=== PATIENT | male | born 1975 | race Two or more races ===

== ENCOUNTER 2018-06-15 01:13 | Emergency (ER) | payer MEDICAID ==
[~2018-06-15] VITALS: Ht 185.4 cm; Wt 131.5 kg
[2018-06-15] MEDS ORDERED: Sodium Chloride 500ML 500 ML IV ONE (01:47)
[2018-06-15] MEDS ORDERED: Morphine Sulfate 4mg/ml Inj (IV USE ONLY) IVP ONE ×2 (02:00→03:30)
[2018-06-15 02:25] LABS: BASOPHILS % (AUTO) 1.2 % (0.0-2.0); EOSINOPHILS % (AUTO) 3.9 % (0.0-3.0); HEMATOCRIT 42.7 % (42.0-52.0); HEMOGLOBIN 14.6 G/DL (14.2-18.0); LYMPHOCYTES % (AUTO) 20.1 % (20.0-45.0); MEAN CORPUSCULAR VOLUME 85 FL (80-99); MONOCYTES % (AUTO) 7.1 % (1.0-10.0); NEUTROPHILS % (AUTO) 67.7 % (45.0-75.0); PLATELET COUNT 221 K/UL (150-450); RED BLOOD COUNT 5.01 M/UL (4.70-6.10); RED CELL DISTRIBUTION WIDTH 11.6 % (11.6-14.8); WHITE BLOOD COUNT 9.9 K/UL (4.8-10.8)
[2018-06-15 02:31] LABS: ANION GAP 11 mmol/L (5-15); BLOOD UREA NITROGEN 15 mg/dL (7-18); CALCIUM 8.7 MG/DL (8.5-10.1); CARBON DIOXIDE 24 MMOL/L (21-32); CHLORIDE 105 MMOL/L (98-107); POTASSIUM 3.4 MMOL/L (3.5-5.1); SODIUM 140 MMOL/L (136-145)
[2018-06-15 02:36] VITALS: BP 134/86
[2018-06-15 02:41] LABS: ALANINE AMINOTRANSFERASE 115 U/L (12-78); ALBUMIN 3.1 G/DL (3.4-5.0); ALBUMIN/GLOBULIN RATIO 0.7 (1.0-2.7); ALKALINE PHOSPHATASE 268 U/L (46-116); ASPARTATE AMINO TRANSFERASE 56 U/L (15-37)
--- NOTE | 2018-06-15 03:51 | Emergency Room Report ---
History of Present Illness General Chief Complaint: Abdominal Pain Source: Patient Present Illness HPI Patient presents with complaints of right upper quadrant abdominal pain He reports that he had a pastrami sandwich and feels that he flared up his gallbladder disease Patient reports that he has a history of gallbladder disease and was supposed to be having surgery Pain is 7 out of 10 right upper quadrant Patient reports that he is followed at [facility] at [facility] Denies any neck pain or photophobia denies any vomiting however he is nauseated Denies any diarrhea Allergies: Uncoded Allergies: PENICILLIN (Allergy, Unknown, 06/15/18) SWELLING Patient History Past Medical History: see triage record Pertinent Family History: none Reviewed Nursing Documentation: PMH: Agreed; PSxH: Agreed Nursing Documentation-PMH Past Medical History: No History, Except For Review of Systems All Other Systems: negative except mentioned in HPI Physical Exam Vital Signs Date Time Temp Pulse Resp B/P (MAP) Pulse Ox O2 Delivery O2 Flow Rate FiO2 06/15/18 01:17 97.6 71 20 142/90 96 Room Air 97.5 Sp02 EP Interpretation: reviewed, normal General Appearance: mild distress - In acute pain Head: normocephalic, atraumatic Eyes: bilateral eye PERRL, bilateral eye EOMI ENT: hearing grossly normal, normal pharynx Neck: supple Respiratory: lungs clear Cardiovascular #1: regular rate, rhythm, no edema Gastrointestinal: non tender - On palpation however subjectively points to the epigastric and right upper quadrant Musculoskeletal: normal inspection Neurologic: alert, oriented x3 Skin: no rash Lymphatic: no adenopathy Medical Decision Making Diagnostic Impression: Primary Impression: abdominal pain ER Course With the history exam and presentation, multiple differentials considered, including but not limited to appendicitis, gastritis, cholecystitis, diverticulitis Patient's blood work reveals mildly elevated liver function test Consistent with the patient's past medical history On repeat evaluation patient feels significantly improved Patient requires close outpatient follow-up and return with any worsening symptoms Labs Test 06/15/18 02:00 White Blood Count 9.9 K/UL (4.8-10.8) Red Blood Count 5.01 M/UL (4.70-6.10) Hemoglobin 14.6 G/DL (14.2-18.0) Hematocrit 42.7 % (42.0-52.0) Mean Corpuscular Volume 85 FL (80-99) Mean Corpuscular Hemoglobin 29.1 PG (27.0-31.0) Mean Corpuscular Hemoglobin Concent 34.1 G/DL (32.0-36.0) Red Cell Distribution Width 11.6 % (11.6-14.8) Platelet Count 221 K/UL (150-450) Mean Platelet Volume 9.7 FL (6.5-10.1) Neutrophils (%) (Auto) 67.7 % (45.0-75.0) Lymphocytes (%) (Auto) 20.1 % (20.0-45.0) Monocytes (%) (Auto) 7.1 % (1.0-10.0) Eosinophils (%) (Auto) 3.9 % (0.0-3.0) Basophils (%) (Auto) 1.2 % (0.0-2.0) Sodium Level 140 MMOL/L (136-145) Potassium Level 3.4 MMOL/L (3.5-5.1) Chloride Level 105 MMOL/L (98-107) Carbon Dioxide Level 24 MMOL/L (21-32) Anion Gap 11 mmol/L (5-15) Blood Urea Nitrogen 15 mg/dL (7-18) Creatinine 1.0 MG/DL (0.55-1.30) Estimat Glomerular Filtration Rate > 60 mL/min (>60) Glucose Level 133 MG/DL (74-106) Calcium Level 8.7 MG/DL (8.5-10.1) Total Bilirubin 1.0 MG/DL (0.2-1.0) Aspartate Amino Transf (AST/SGOT) 56 U/L (15-37) Alanine Aminotransferase (ALT/SGPT) 115 U/L (12-78) Alkaline Phosphatase 268 U/L (46-116) Total Protein 7.3 G/DL (6.4-8.2) Albumin 3.1 G/DL (3.4-5.0) Globulin 4.2 g/dL Albumin/Globulin Ratio 0.7 (1.0-2.7) Lipase 127 U/L (73-393) Last Vital Signs Date Time Temp Pulse Resp B/P (MAP) Pulse Ox O2 Delivery O2 Flow Rate FiO2 06/15/18 03:28 97.5 06/15/18 02:36 65 20 134/86 98 Room Air Status: improved Disposition: HOME, SELF-CARE Condition: Improved Referrals: NOT CHOSEN IPA/MD,REFERRING (PCP) Patient Instructions: Abdominal Pain, Adult Additional Instructions: Patient is provided with the discharge instructions notified to follow up with primary doctor in the next 2-3 days otherwise return to the er with any worsening symptoms. Please note that this report is being documented using DRAGON technology. This can lead to erroneous entry secondary to incorrect interpretation by the dictating instrument. Glen Eldridge DO Jun 15, 2018 03:51
[2018-06-15 03:55] VITALS: BP 131/82
== END 2018-06-15 03:55 | disposition home or self-care (01) ==
LOC: EMR 01:34
DX: R10.31 Right lower quadrant pain (principal); Z88.0 Allergy status to penicillin
CPT/HCPCS: 36415; 80053; 83690; 85025; 96374; 96375; 96376; 99284; J2270; J2405; J7040

== ENCOUNTER 2018-06-15 17:52 | Inpatient (IN) | payer MEDICAID ==
[~2018-06-15] VITALS: Ht 185.4 cm; Wt 132.4 kg
[2018-06-15 18:10] VITALS: BP 152/84
[2018-06-15] MEDS ORDERED: Dicyclomine HCl 10mg/5ml oral soln ORAL ONE (18:15)
--- NOTE | 2018-06-15 18:23 | Emergency Room Report ---
History of Present Illness General Chief Complaint: Abdominal Pain Source: Patient Present Illness HPI 42-year-old male with a self-reported history of primary sclerosing cholangitis presents with right upper quadrant pain that started last night, reports he is here last night did not have adequate pain control and was sent home without pain meds, and he reports he is not a drug user. He reports the pain is right upper quadrant, nonradiating, sharp, severe, and thinks it was triggered by eating an eggroll. He reports nausea but no vomiting, no fevers no chills no diarrhea, and reports he's never had a major surgeries. He has not tried any medications at home either for the symptoms. Allergies: Coded Allergies: PENICILLINS (Verified Allergy, Unknown, 06/15/18) Patient History Past Medical History: see triage record Reviewed Nursing Documentation: PMH: Agreed; PSxH: Agreed Nursing Documentation-PMH Past Medical History: No History, Except For Review of Systems All Other Systems: negative except mentioned in HPI Physical Exam Vital Signs Date Time Temp Pulse Resp B/P (MAP) Pulse Ox O2 Delivery O2 Flow Rate FiO2 06/15/18 17:59 97.5 57 16 152/84 100 Room Air 97.5 Sp02 EP Interpretation: reviewed, normal General Appearance: no apparent distress, alert, non-toxic Head: normocephalic Eyes: bilateral eye normal inspection, bilateral eye PERRL, bilateral eye EOMI ENT: normal ENT inspection, hearing grossly normal, normal pharynx, no angioedema, normal voice, moist mucus membranes Neck: normal inspection, full range of motion, supple, supple/symm/no masses Respiratory: chest non-tender, lungs clear, normal breath sounds, chest symmetrical, palpation of chest normal Cardiovascular #1: normal peripheral pulses, regular rate, rhythm Cardiovascular #2: 2+ radial (R), 2+ radial (L) Gastrointestinal: normal inspection, soft, no mass, no guarding, no rebound, tenderness - Positive subjective tenderness quadrant Rectal: deferred Genitourinary: normal inspection, no CVA tenderness Musculoskeletal: back normal, gait/station normal, normal range of motion, non- tender, no calf tenderness Neurologic: alert, responsive, deburr operator III-XII nml as tested, motor strength/tone normal, sensory intact, speech normal Psychiatric: judgement/insight normal, memory normal, mood/affect normal, no suicidal/homicidal ideation Skin: normal color, no rash, warm/dry, normal turgor Lymphatic: no adenopathy Medical Decision Making Diagnostic Impression: Primary Impression: Abdominal pain Additional Impression: Acute calculous cholecystitis ER Course Patient given bentyl and zofran for pain and nausea here. Received no relief , so then given Haldol, morphine, Ativan, pending results of ultrasound, but then I was informed that ultrasound would not be available until after 10 PM, so CT scan was obtained. This revealed evidence of acute cholecystitis with large gallstone in the gallbladder neck. Pt given zosyn, Dr. Burgos consulted. Pt admitted to [facility]. CT/MRI/US Diagnostic Results CT/MRI/US Diagnostic Results : Imaging Test Ordered: ct abd/pelvis Impression large gallstone in gb neck, color wall thickness increased pericholecystic fluid seen on CT scan per readingfindings consistent with acute calculus cholecystitis Last Vital Signs Date Time Temp Pulse Resp B/P (MAP) Pulse Ox O2 Delivery O2 Flow Rate FiO2 06/15/18 17:59 97.5 57 16 152/84 100 Room Air 97.5 Disposition: ADMITTED INPATIENT Condition: Stable JAS HEBERT M.D Jun 15, 2018 18:23
[2018-06-15 18:42] LABS: BASOPHILS % (AUTO) 1.1 % (0.0-2.0); EOSINOPHILS % (AUTO) 2.4 % (0.0-3.0); HEMOGLOBIN 15.3 G/DL (14.2-18.0); LYMPHOCYTES % (AUTO) 10.4 % (20.0-45.0); MEAN CORPUSCULAR VOLUME 89 FL (80-99); MONOCYTES % (AUTO) 5.2 % (1.0-10.0); PLATELET COUNT 238 K/UL (150-450); RED BLOOD COUNT 5.18 M/UL (4.70-6.10); WHITE BLOOD COUNT 13.8 K/UL (4.8-10.8)
[2018-06-15 18:46] LABS: APPEARANCE,URINE CLEAR; BILIRUBIN, URINE 1+ (NEGATIVE); GLUCOSE, URINE (UA) NEGATIVE (NEGATIVE); KETONES,URINE NEGATIVE (NEGATIVE); LEUKOCYTE ESTERASE ,URINE 1+ (NEGATIVE); NITRITE,URINE NEGATIVE (NEGATIVE); PH,URINE 7 (4.5-8.0); PROTEIN,URINE NEGATIVE (NEGATIVE); UROBILINOGEN,URINE 12 MG/DL (0.0-1.0)
[2018-06-15 18:51] LABS: ANION GAP 7 mmol/L (5-15); BLOOD UREA NITROGEN 14 mg/dL (7-18); CARBON DIOXIDE 29 MMOL/L (21-32); CHLORIDE 103 MMOL/L (98-107); POTASSIUM 3.5 MMOL/L (3.5-5.1); SODIUM 139 MMOL/L (136-145)
[2018-06-15 18:51] LABS: COLOR,URINE AMBER
[2018-06-15 19:01] LABS: ALANINE AMINOTRANSFERASE 115 U/L (12-78); ALBUMIN 3.4 G/DL (3.4-5.0); ALBUMIN/GLOBULIN RATIO 0.7 (1.0-2.7); ALKALINE PHOSPHATASE 288 U/L (46-116); ASPARTATE AMINO TRANSFERASE 48 U/L (15-37); BILIRUBIN,TOTAL 1.7 MG/DL (0.2-1.0)
[2018-06-15 19:07] LABS: BILIRUBIN,DIRECT 0.7 MG/DL (0.0-0.3)
[2018-06-15 19:41] VITALS: BP 148/80
[2018-06-15] MEDS ORDERED: Morphine Sulfate 4mg/ml Inj (IV USE ONLY) IVP ONE ×2 (20:00→22:00)
[2018-06-15] MEDS ORDERED: LORazepam 1mg tab ORAL ONE (20:00)
[2018-06-15] MEDS ORDERED: Haloperidol 5mg/ml Inj IM ONE (20:00)
[2018-06-15] MEDS ORDERED: Isovue-300 100ml vial INJ PRN (20:15)
[2018-06-15] MEDS ORDERED: Piperacillin/Tazobactam 3.375 GM in NS 110 ML IVPB ONE (21:30)
[2018-06-15] MEDS ORDERED: LORazepam Inj 2mg/ml 1ml IV PRN (22:15)
[2018-06-15] MEDS ORDERED: Acetaminophen 650 MG SUPP RECTAL PRN ×2 (22:15)
[2018-06-15] MEDS ORDERED: Morphine Sulfate 2mg/ml Inj IVP PRN (22:15)
[2018-06-15 23:30] VITALS: BP 147/88
[2018-06-15] MEDS: Morphine Sulfate 4mg/ml Inj (IV USE ONLY) IVP PRN (23:38)
[2018-06-16] MEDS ORDERED: cefOXitin Sod 1 GM in D5W 55 ML IVPB SCH ×2
[2018-06-16] MEDS: Morphine Sulfate 4mg/ml Inj (IV USE ONLY) IVP PRN ×3 (03:47→10:23)
[2018-06-16 04:00] VITALS: BP 132/60
[2018-06-16 07:25] LABS: ALANINE AMINOTRANSFERASE 100 U/L (12-78); ALBUMIN/GLOBULIN RATIO 0.7 (1.0-2.7); ALKALINE PHOSPHATASE 258 U/L (46-116); ANION GAP 6 mmol/L (5-15); ASPARTATE AMINO TRANSFERASE 43 U/L (15-37); BILIRUBIN,TOTAL 2.7 MG/DL (0.2-1.0); BLOOD UREA NITROGEN 10 mg/dL (7-18); CALCIUM 8.9 MG/DL (8.5-10.1); CARBON DIOXIDE 29 MMOL/L (21-32); CHLORIDE 103 MMOL/L (98-107); SODIUM 138 MMOL/L (136-145)
[2018-06-16 07:30] LABS: BASOPHILS % (AUTO) 0.5 % (0.0-2.0); BILIRUBIN,DIRECT 1.3 MG/DL (0.0-0.3); EOSINOPHILS % (AUTO) 1.1 % (0.0-3.0); HEMATOCRIT 45.2 % (42.0-52.0); HEMOGLOBIN 15.1 G/DL (14.2-18.0); LYMPHOCYTES % (AUTO) 7.2 % (20.0-45.0); MEAN CORPUSCULAR VOLUME 85 FL (80-99); NEUTROPHILS % (AUTO) 84.2 % (45.0-75.0); PLATELET COUNT 214 K/UL (150-450); RED CELL DISTRIBUTION WIDTH 11.7 % (11.6-14.8); WHITE BLOOD COUNT 16.6 K/UL (4.8-10.8)
[2018-06-16 08:00] VITALS: BP 143/85
[2018-06-16] MEDS ORDERED: Heparin 5000 units/ml inj SUBQ SCH (09:00)
[2018-06-16] MEDS ORDERED: D5 1/2NS w/KCl 40meq 1000ml 1,000 ML IV SCH (09:00)
--- NOTE | 2018-06-16 09:33 | Diagnostic Imaging Report ---
Indication: Abdominal pain Technique: Continuous helical transaxial imaging of the abdomen and pelvis was obtained from the lung bases to the pubic symphysis. No intravenous contrast was administered. Coronal 2-D reformats were also obtained. Automatic Exposure Control was utilized. Total Dose length Product (DLP): 1580.[address] Dose Index Volume (CTDIvol): 26.2 mGy Comparison: none Findings: There is a stone at the neck of the gallbladder. There is thickening of the gallbladder wall. Correlate clinically for cholecystitis. The spleen is enlarged. There are epigastric and celiac axis nodes and anyi hepatis nodes that are present. These may be reactive. However nonspecific. Follow-up suggested. The appendix is normal. No free fluid or free air identified. No hydronephrosis or renal stones identified. IMPRESSION: Suspected cholecystitis with the stone at the gallbladder neck and wall thickening. Correlate clinically. Splenomegaly. Multiple upper abdominal nodes nonspecific. Inflammatory versus neoplastic. Follow-up and clinical correlation is needed. [facility] has communicated the preliminary results to the Emergency Department. Their findings are largely concordant with this report. The CT scanner at [facility] is accredited by the [employer] and the scans are performed using dose optimization techniques as appropriate to a performed exam including Automatic Exposure control.
[2018-06-16 12:00] VITALS: BP 140/83
--- NOTE | 2018-06-16 12:07 | Diagnostic Imaging Report ---
Indication:Abdominal pain Technique: Grayscale and duplex Doppler imaging of the abdomen performed. Comparison: None Findings: The liver is unremarkable. The gallbladder is notable for stone and wall thickening. The sonographic Pond's sign is negative per technologist. Please correlate clinically. The demonstrated part of the pancreas, aorta and IVC show no abnormalities. Both kidneys appear unremarkable. The spleen is enlarged measuring 18 cm. There is no biliary ductal dilatation identified. Doppler evaluation of the main portal vein shows patency. There is no ascites. No hydronephrosis seen. Impression: Gallstones with gallbladder wall thickening. Sonographic Pond's is negative. Please correlate clinically. Splenomegaly
[2018-06-16] MEDS ORDERED: Morphine Sulfate 2mg/ml Inj IVP ONE (12:15)
[2018-06-16] MEDS ORDERED: NS 275ml ONE (12:59)
[2018-06-16] MEDS ORDERED: Tubing IV Secondary IV ONE (12:59)
--- NOTE | 2018-06-16 14:11 | GI Initial Consult Note ---
History of Present Illness General Date patient seen: Jun 16, 2018 Time patient seen: 13:48 Reason for Hospitalization: Abdominal Pain Referring physician: SUKI COLEMAN Reason for Consultation: ABDOMINAL PAIN Present Illness HPI 42-year-old male with a self-reported history of primary sclerosing cholangitis presents with right upper quadrant pain that started last night, reports he is here last night did not have adequate pain control and was sent home without pain meds, and he reports he is not a drug user. He reports the pain is right upper quadrant, nonradiating, sharp, severe, and thinks it was triggered by eating an eggroll. He reports nausea but no vomiting, no fevers no chills no diarrhea, and reports he's never had a major surgeries. He has not tried any medications at home either for the symptoms. GI consulted for abdominal pain. Pt seen, awake A&Ox4 c/o severe abdominal pain , requesting just to rest. Family/friend at bedside. Patient repots having a history of PBC, currently being seen at [facility] where all his endoscopy procedures have been performed. Presents today with severe abdominal pain. CTAP shows large stone on the gallbladder neck. Labs show uptrending bilirubin. Surgical consult pending. At this time, the family member is requesting a transfer to [facility]. Allergies: Coded Allergies: PENICILLINS (Verified Allergy, Unknown, 06/15/18) Patient History History Provided By: Patient, Family Member, Medical Record PMH Narrative Past Medical History: see triage record Reviewed Nursing Documentation: PMH: Agreed; PSxH: Agreed Nursing Documentation-PMH Past Medical History: No History, Except For Social History: Denies: smoking, alcohol use, drug use, other Review of Systems All Other Systems: negative except mentioned in HPI Physical Exam Vital Signs Date Time Temp Pulse Resp B/P (MAP) Pulse Ox O2 Delivery O2 Flow Rate FiO2 06/15/18 17:59 97.5 57 16 152/84 100 Room Air 97.5 Sp02 EP Interpretation: reviewed, normal Labs Laboratory Tests Test 06/15/18 18:20 06/15/18 18:24 06/16/18 06:30 Urine Color Ramona Urine Appearance Clear Urine pH 7 (4.5-8.0) Urine Specific [place] 1.010 (1.005-1.035) Urine Protein Negative (NEGATIVE) Urine Glucose (UA) Negative (NEGATIVE) Urine Ketones Negative (NEGATIVE) Urine Blood 1+ (NEGATIVE) H Urine Nitrite Negative (NEGATIVE) Urine Bilirubin 1+ (NEGATIVE) H Urine Ictotest Negative (NEGATIVE) Urine Urobilinogen 12 MG/DL (0.0-1.0) H Urine Leukocyte Esterase 1+ (NEGATIVE) H Urine RBC 2-4 /HPF (0 - 0) H Urine WBC 0-2 /HPF (0 - 0) Urine Squamous Epithelial Cells None /LPF (NONE/OCC) Urine Bacteria Occasional /HPF (NONE) White Blood Count 13.8 K/UL (4.8-10.8) H 16.6 K/UL (4.8-10.8) H Red Blood Count 5.18 M/UL (4.70-6.10) 5.30 M/UL (4.70-6.10) Hemoglobin 15.3 G/DL (14.2-18.0) 15.1 G/DL (14.2-18.0) Hematocrit 46.0 % (42.0-52.0) 45.2 % (42.0-52.0) Mean Corpuscular Volume 89 FL (80-99) 85 FL (80-99) Mean Corpuscular Hemoglobin 29.5 PG (27.0-31.0) 28.5 PG (27.0-31.0) Mean Corpuscular Hemoglobin Concent 33.2 G/DL (32.0-36.0) 33.4 G/DL (32.0-36.0) Red Cell Distribution Width 12.0 % (11.6-14.8) 11.7 % (11.6-14.8) Platelet Count 238 K/UL (150-450) 214 K/UL (150-450) Mean Platelet Volume 9.8 FL (6.5-10.1) 10.0 FL (6.5-10.1) Neutrophils (%) (Auto) 81.0 % (45.0-75.0) H 84.2 % (45.0-75.0) H Lymphocytes (%) (Auto) 10.4 % (20.0-45.0) L 7.2 % (20.0-45.0) L Monocytes (%) (Auto) 5.2 % (1.0-10.0) 7.0 % (1.0-10.0) Eosinophils (%) (Auto) 2.4 % (0.0-3.0) 1.1 % (0.0-3.0) Basophils (%) (Auto) 1.1 % (0.0-2.0) 0.5 % (0.0-2.0) Sodium Level 139 MMOL/L (136-145) 138 MMOL/L (136-145) Potassium Level 3.5 MMOL/L (3.5-5.1) 4.0 MMOL/L (3.5-5.1) Chloride Level 103 MMOL/L (98-107) 103 MMOL/L (98-107) Carbon Dioxide Level 29 MMOL/L (21-32) 29 MMOL/L (21-32) Anion Gap 7 mmol/L (5-15) 6 mmol/L (5-15) Blood Urea Nitrogen 14 mg/dL (7-18) 10 mg/dL (7-18) Creatinine 1.0 MG/DL (0.55-1.30) 1.0 MG/DL (0.55-1.30) Estimat Glomerular Filtration Rate > 60 mL/min (>60) > 60 mL/min (>60) Glucose Level 125 MG/DL (74-106) H 116 MG/DL (74-106) H Calcium Level 9.0 MG/DL (8.5-10.1) 8.9 MG/DL (8.5-10.1) Total Bilirubin 1.7 MG/DL (0.2-1.0) H 2.7 MG/DL (0.2-1.0) H Direct Bilirubin 0.7 MG/DL (0.0-0.3) H 1.3 MG/DL (0.0-0.3) H Aspartate Amino Transf (AST/SGOT) 48 U/L (15-37) H 43 U/L (15-37) H Alanine Aminotransferase (ALT/SGPT) 115 U/L (12-78) H 100 U/L (12-78) H Alkaline Phosphatase 288 U/L (46-116) H 258 U/L (46-116) H Total Protein 8.0 G/DL (6.4-8.2) 7.6 G/DL (6.4-8.2) Albumin 3.4 G/DL (3.4-5.0) 3.0 G/DL (3.4-5.0) L Globulin 4.6 g/dL 4.6 g/dL Albumin/Globulin Ratio 0.7 (1.0-2.7) L 0.7 (1.0-2.7) L Lipase 114 U/L (73-393) 109 U/L (73-393) General Appearance: well appearing, no apparent distress, alert Head: normocephalic EENT: PERRL/EOMI, normal ENT inspection Neck: supple Respiratory: normal breath sounds, no respiratory distress Cardiovascular: normal rate Gastrointestinal: normal inspection, non tender, soft, normal bowel sounds, non -distended Rectal: deferred Genitourinary: deferred Musculoskeletal: normal inspection, back normal Neurologic: normal inspection, alert, oriented x3, responsive Psychiatric: normal inspection, judgement/insight normal, memory normal Skin: normal inspection, normal color, no rash, warm/dry, palpation normal, well hydrated Lymphatic: normal inspection, no adenopathy Current Medications Current Medications Medications (Trade) Dose Ordered Sig/Barb Route PRN Reason Start Time Stop Time Status Last Admin Dose Admin Acetaminophen (Tylenol) 650 mg Q4H PRN ORAL Mild Pain (Pain Scale 1-3) 06/15/18 22:15 07/15/18 22:14 Acetaminophen (Tylenol) 650 mg Q4H PRN ORAL fever 06/15/18 22:15 07/15/18 22:14 Acetaminophen (Tylenol) 650 mg Q4H PRN RECTAL Mild Pain (Pain Scale 1-3) 06/15/18 22:15 07/15/18 22:14 Acetaminophen (Tylenol) 650 mg Q4H PRN RECTAL fever 06/15/18 22:15 07/15/18 22:14 Ciprofloxacin 200 ml @ 200 mls/hr Q12HR IV 06/15/18 23:30 06/22/18 23:29 06/16/18 08:29 Dextrose (Dextrose 50%) 25 ml Q30M PRN IV Hypoglycemia 06/15/18 22:15 07/15/18 22:14 Dextrose (Dextrose 50%) 50 ml Q30M PRN IV Hypoglycemia 06/15/18 22:15 07/15/18 22:14 Dextrose/ Electrolytes 1,000 ml @ 125 mls/hr DAILY IV 06/16/18 09:00 07/16/18 08:59 06/16/18 08:30 Famotidine (Pepcid I.v.) 20 mg Q12HR IVP 06/16/18 09:00 07/16/18 08:59 06/16/18 09:54 Heparin Sodium (Porcine) (Heparin 5000 units/ml) 5,000 units EVERY 12 HOURS SUBQ 06/16/18 09:00 07/16/18 08:59 06/16/18 08:44 Iopamidol (Isovue-300 100ml) 100 ml NOW PRN INJ Radiology Procedure 06/15/18 20:15 Lorazepam (Ativan 2mg/ml 1ml) 0.5 mg Q4H PRN IV For Anxiety 06/15/18 22:15 06/22/18 22:14 Morphine Sulfate (Morphine Sulfate) 2 mg Q2HR PRN IVP Moderate Pain (Pain Scale 4-6) 06/15/18 22:15 06/22/18 22:14 Morphine Sulfate (Morphine Sulfate) 4 mg Q2HR PRN IVP Severe Pain (Pain Scale 7-10) 06/15/18 22:15 06/22/18 22:14 06/16/18 10:23 Ondansetron HCl (Zofran) 4 mg Q4HR PRN IVP Nausea & Vomiting 06/15/18 22:15 07/15/18 22:14 GI: Plan Problems: (1) Primary biliary cirrhosis (2) Abdominal pain (3) Acute calculous cholecystitis Plan giving rising bilirubin and history of PBC, patient highly recommended to have ERCP performed due to high risk of cholangitis. patient refused procedure, request to be transferred to her primary GI doctor at [facility] ordered MRCP r/o any biliary stricture maintain the patient NPO + IVFs pain mgmt fu labs will consider ERCP tomorrow if patient is still inhouse and they agree Discussed with Dr. Cm. Thank you for this patient referral, we will follow. The patient was seen and examined at bedside and all new and available data was reviewed in the patients chart. I agree with the above findings, impression and plan. (Patient seen earlier today. Signature stamp does not reflect patient encounter time.). - MD Milana Trivedi,Mayi-Maxwell [employer] ARCHITECT Jun 16, 2018 14:11
--- NOTE | 2018-06-16 14:50 | Consultation ---
History of Present Illness General Date patient seen: Jun 16, 2018 Time patient seen: 10:00 Chief Complaint: Abdominal Pain Referring physician: SUKI COLEMAN Reason for Consultation: ABDOMINAL PAIN Present Illness HPI 42-year-old male with past medical history of primary sclerosing cholangitis presents with right upper quadrant pain that started last night. Pain is right upper quadrant, nonradiating, sharp, severe, and thinks it was triggered by food. He reports nausea but no vomiting, no fevers no chills no diarrhea. Surgery called to evaluate for abdominal pain. Pt seen, examined, chart reviewed. states pain better since admission. Patient repots having a history of PBC, currently being seen at [facility] for care. PCTAP shows large stone on the gallbladder neck. Labs show uptrending bilirubin. Allergies: Coded Allergies: PENICILLINS (Verified Allergy, Unknown, 06/15/18) Patient History History Provided By: Patient, Medical Record, PMD Healthcare decision maker Resuscitation status Advanced Directive on File Past Medical/Surgical History Past Medical/Surgical History: (1) Acute cholecystitis (2) Primary biliary cirrhosis Review of Systems All Other Systems: negative except mentioned in HPI Physical Exam General Appearance: no apparent distress Lines, tubes and drains: peripheral HEENT: mucous membranes moist Neck: normal inspection Respiratory/Chest: normal breath sounds, no respiratory distress, no accessory muscle use Cardiovascular/Chest: normal rate, regular rhythm, regularly irregular Abdomen: normal bowel sounds, soft, no organomegaly, no mass, tender Extremities: normal inspection Skin Exam: warm/dry Neurologic: alert, oriented x 3 Last 24 Hour Vital Signs Date Time Temp Pulse Resp B/P (MAP) Pulse Ox O2 Delivery O2 Flow Rate FiO2 06/16/18 12:00 98.9 88 20 140/83 (102) 96 98.9 06/16/18 10:53 97.9 06/16/18 10:23 97.9 06/16/18 08:21 97.9 06/16/18 08:00 Room Air 06/16/18 08:00 99.0 85 20 143/85 (104) 95 99.0 06/16/18 04:00 97.9 80 16 132/60 (84) 91 97.9 06/15/18 23:30 97.7 71 20 147/88 (107) 97 97.7 06/15/18 23:25 Room Air 06/15/18 23:19 97.5 57 16 150/80 100 Room Air 06/15/18 19:41 97.5 55 16 148/80 100 Room Air 97.5 06/15/18 18:10 97.5 57 16 152/84 100 Room Air 97.5 06/15/18 17:59 97.5 57 16 152/84 100 Room Air 97.5 Intake and Output 06/15/18 06/16/18 19:00 07:00 Intake Total 200 ml Balance 200 ml Intake IV Total 200 ml # Voids 1 2 Laboratory Tests Test 06/15/18 18:20 06/15/18 18:24 06/16/18 06:30 Urine Color Ramona Urine Appearance Clear Urine pH 7 (4.5-8.0) Urine Specific [place] 1.010 (1.005-1.035) Urine Protein Negative (NEGATIVE) Urine Glucose (UA) Negative (NEGATIVE) Urine Ketones Negative (NEGATIVE) Urine Blood 1+ (NEGATIVE) H Urine Nitrite Negative (NEGATIVE) Urine Bilirubin 1+ (NEGATIVE) H Urine Ictotest Negative (NEGATIVE) Urine Urobilinogen 12 MG/DL (0.0-1.0) H Urine Leukocyte Esterase 1+ (NEGATIVE) H Urine RBC 2-4 /HPF (0 - 0) H Urine WBC 0-2 /HPF (0 - 0) Urine Squamous Epithelial Cells None /LPF (NONE/OCC) Urine Bacteria Occasional /HPF (NONE) White Blood Count 13.8 K/UL (4.8-10.8) H 16.6 K/UL (4.8-10.8) H Red Blood Count 5.18 M/UL (4.70-6.10) 5.30 M/UL (4.70-6.10) Hemoglobin 15.3 G/DL (14.2-18.0) 15.1 G/DL (14.2-18.0) Hematocrit 46.0 % (42.0-52.0) 45.2 % (42.0-52.0) Mean Corpuscular Volume 89 FL (80-99) 85 FL (80-99) Mean Corpuscular Hemoglobin 29.5 PG (27.0-31.0) 28.5 PG (27.0-31.0) Mean Corpuscular Hemoglobin Concent 33.2 G/DL (32.0-36.0) 33.4 G/DL (32.0-36.0) Red Cell Distribution Width 12.0 % (11.6-14.8) 11.7 % (11.6-14.8) Platelet Count 238 K/UL (150-450) 214 K/UL (150-450) Mean Platelet Volume 9.8 FL (6.5-10.1) 10.0 FL (6.5-10.1) Neutrophils (%) (Auto) 81.0 % (45.0-75.0) H 84.2 % (45.0-75.0) H Lymphocytes (%) (Auto) 10.4 % (20.0-45.0) L 7.2 % (20.0-45.0) L Monocytes (%) (Auto) 5.2 % (1.0-10.0) 7.0 % (1.0-10.0) Eosinophils (%) (Auto) 2.4 % (0.0-3.0) 1.1 % (0.0-3.0) Basophils (%) (Auto) 1.1 % (0.0-2.0) 0.5 % (0.0-2.0) Sodium Level 139 MMOL/L (136-145) 138 MMOL/L (136-145) Potassium Level 3.5 MMOL/L (3.5-5.1) 4.0 MMOL/L (3.5-5.1) Chloride Level 103 MMOL/L (98-107) 103 MMOL/L (98-107) Carbon Dioxide Level 29 MMOL/L (21-32) 29 MMOL/L (21-32) Anion Gap 7 mmol/L (5-15) 6 mmol/L (5-15) Blood Urea Nitrogen 14 mg/dL (7-18) 10 mg/dL (7-18) Creatinine 1.0 MG/DL (0.55-1.30) 1.0 MG/DL (0.55-1.30) Estimat Glomerular Filtration Rate > 60 mL/min (>60) > 60 mL/min (>60) Glucose Level 125 MG/DL (74-106) H 116 MG/DL (74-106) H Calcium Level 9.0 MG/DL (8.5-10.1) 8.9 MG/DL (8.5-10.1) Total Bilirubin 1.7 MG/DL (0.2-1.0) H 2.7 MG/DL (0.2-1.0) H Direct Bilirubin 0.7 MG/DL (0.0-0.3) H 1.3 MG/DL (0.0-0.3) H Aspartate Amino Transf (AST/SGOT) 48 U/L (15-37) H 43 U/L (15-37) H Alanine Aminotransferase (ALT/SGPT) 115 U/L (12-78) H 100 U/L (12-78) H Alkaline Phosphatase 288 U/L (46-116) H 258 U/L (46-116) H Total Protein 8.0 G/DL (6.4-8.2) 7.6 G/DL (6.4-8.2) Albumin 3.4 G/DL (3.4-5.0) 3.0 G/DL (3.4-5.0) L Globulin 4.6 g/dL 4.6 g/dL Albumin/Globulin Ratio 0.7 (1.0-2.7) L 0.7 (1.0-2.7) L Lipase 114 U/L (73-393) 109 U/L (73-393) Height (Feet): 6 Height (Inches): 1.00 Weight (Pounds): 292 Assessment/Plan Problem List: (1) Acute cholecystitis Assessment & Plan: RUQ abd pain, CT with likely acute aneta, leukocytosis, worsening lft's. exam improved today. currently no n/v/f/c. abd soft, mild RUQ tenderness, non distended. acute cholecystitis; possible choledocholithiasis; hx PSC -npo -iv fluids -iv abx -trend labs -MRCP -GI consult thank you for this consultation ICD Codes: K81.0 - Acute cholecystitis SNOMED: [id number] Status: stable Hany Burgos Jun 16, 2018 14:50
--- NOTE | 2018-06-16 15:27 | General Progress Note ---
Assessment/Plan Assessment/Plan left ama prior to my rounds, d/w surgeon and nurse Subjective Allergies: Coded Allergies: PENICILLINS (Verified Allergy, Unknown, 06/15/18) Objective Last 24 Hour Vital Signs Date Time Temp Pulse Resp B/P (MAP) Pulse Ox O2 Delivery O2 Flow Rate FiO2 06/16/18 12:00 98.9 88 20 140/83 (102) 96 98.9 06/16/18 10:53 97.9 06/16/18 10:23 97.9 06/16/18 08:21 97.9 06/16/18 08:00 Room Air 06/16/18 08:00 99.0 85 20 143/85 (104) 95 99.0 06/16/18 04:00 97.9 80 16 132/60 (84) 91 97.9 06/15/18 23:30 97.7 71 20 147/88 (107) 97 97.7 06/15/18 23:25 Room Air 06/15/18 23:19 97.5 57 16 150/80 100 Room Air 06/15/18 19:41 97.5 55 16 148/80 100 Room Air 97.5 06/15/18 18:10 97.5 57 16 152/84 100 Room Air 97.5 06/15/18 17:59 97.5 57 16 152/84 100 Room Air 97.5 Intake and Output 06/15/18 06/16/18 19:00 07:00 Intake Total 200 ml Balance 200 ml Intake IV Total 200 ml # Voids 1 2 Laboratory Tests 06/15/18 18:20: Urine Color [place], Urine Appearance Clear, Urine pH 7, Urine Specific [place] 1.010, Urine Protein Negative, Urine Glucose (UA) Negative, Urine Ketones Negative, Urine Blood 1+H, Urine Nitrite Negative, Urine Bilirubin 1+H, Urine Ictotest Negative, Urine Urobilinogen 12H, Urine Leukocyte Esterase 1+H, Urine RBC 2-4H, Urine WBC 0-2, Urine Squamous Epithelial Cells None, Urine Bacteria Occasional 06/15/18 18:24: White Blood Count 13.8H, Red Blood Count 5.18, Hemoglobin 15.3, Hematocrit 46.0 , Mean Corpuscular Volume 89, Mean Corpuscular Hemoglobin 29.5, Mean Corpuscular Hemoglobin Concent 33.2, Red Cell Distribution Width 12.0, Platelet Count 238, Mean Platelet Volume 9.8, Neutrophils (%) (Auto) 81.0H, Lymphocytes ( %) (Auto) 10.4L, Monocytes (%) (Auto) 5.2, Eosinophils (%) (Auto) 2.4, Basophils (%) (Auto) 1.1, Sodium Level 139, Potassium Level 3.5, Chloride Level 103, Carbon Dioxide Level 29, Anion Gap 7, Blood Urea Nitrogen 14, Creatinine 1.0, Estimat Glomerular Filtration Rate > 60, Glucose Level 125H, Calcium Level 9.0, Total Bilirubin 1.7H, Direct Bilirubin 0.7H, Aspartate Amino Transf (AST/ SGOT) 48H, Alanine Aminotransferase (ALT/SGPT) 115H, Alkaline Phosphatase 288H, Total Protein 8.0, Albumin 3.4, Globulin 4.6, Albumin/Globulin Ratio 0.7L, Lipase 114 06/16/18 06:30: White Blood Count 16.6H, Red Blood Count 5.30, Hemoglobin 15.1, Hematocrit 45.2 , Mean Corpuscular Volume 85, Mean Corpuscular Hemoglobin 28.5, Mean Corpuscular Hemoglobin Concent 33.4, Red Cell Distribution Width 11.7, Platelet Count 214, Mean Platelet Volume 10.0, Neutrophils (%) (Auto) 84.2H, Lymphocytes (%) (Auto) 7.2L, Monocytes (%) (Auto) 7.0, Eosinophils (%) (Auto) 1.1, Basophils (%) (Auto) 0.5, Sodium Level 138, Potassium Level 4.0, Chloride Level 103, Carbon Dioxide Level 29, Anion Gap 6, Blood Urea Nitrogen 10, Creatinine 1.0, Estimat Glomerular Filtration Rate > 60, Glucose Level 116H, Calcium Level 8.9, Total Bilirubin 2.7H, Direct Bilirubin 1.3H, Aspartate Amino Transf (AST/ SGOT) 43H, Alanine Aminotransferase (ALT/SGPT) 100H, Alkaline Phosphatase 258H, Total Protein 7.6, Albumin 3.0L, Globulin 4.6, Albumin/Globulin Ratio 0.7L, Lipase 109 Height (Feet): 6 Height (Inches): 1.00 Weight (Pounds): 292 SUKI COLEMAN Jun 16, 2018 15:27
--- NOTE | 2018-06-17 06:15 | Discharge Summary ---
Discharge Summary Hospital Course Date of Admission Jun 15, 2018 at 21:38 Date of Discharge Jun 16, 2018 at 13:00 Admitting Diagnosis acute cholecystitis CEDRIC Moore is a 42 year old male who was admitted on Jun 15, 2018 at 21:38 for Acute Cholecystitis Hospital Course Was admitted through ER for evaluation of abdominal pain. Imaging showed large stone in the gallbladder neck with GB wall thickening. Patient was admitted for acute cholecystitis. He was given IV hydration, IV antibiotics and pain management. Was recommended MRCP and ERCP by consultants but patient left AMA. Final Diagnosis: Acute Calculous Cholecystitis Discharge Discharge Disposition Patient was discharged to [facility] Diana Berrios NP Jun 17, 2018 06:15
== END 2018-06-16 13:00 | disposition left against medical advice (07) ==
LOC: EMR 18:49 → 4E 21:38 → EDBEDREQ 21:55
DX: K81.0 Acute cholecystitis (principal); K74.5 Biliary cirrhosis, unspecified; Z88.0 Allergy status to penicillin; Z53.21 Procedure and treatment not carried out due to patient leaving prior to being seen by health care provider; Z53.29 Procedure and treatment not carried out because of patient's decision for other reasons
CPT/HCPCS: 36415; 74176; 76700; 80053; 81003; 82248; 83690; 85025; 96365; 96372; 96375; 99285; J2405

== ENCOUNTER 2018-12-15 20:15 | Emergency (ER) | payer MEDICAID ==
[~2018-12-15] VITALS: Ht 185.4 cm; Wt 127.0 kg
[2018-12-15 20:53] VITALS: BP 124/62
--- NOTE | 2018-12-15 20:54 | NUR ---
ER Nurse Note: Pt came from home c/o allergic reaction from eating shrimp. Pt stated he ate salad with shrimp around 1200. S/S of mild shortness of breath with O2 sat of 99% RA and itchiness on all extremities, and vomited three times. Pt a&ox4, VSS, no signs of distres. ERMD at pt side; prescribed PO medications; pt refused d/t pt stated "his airway is small and I will throw it up". Dr. Farley aware.
[2018-12-15] MEDS ORDERED: NKM (20:57)
--- NOTE | 2018-12-15 20:58 | Emergency Room Report ---
History of Present Illness General Chief Complaint: Allergic Reaction Source: Patient Present Illness HPI This patient states that he had a salad with some shrimp on it earlier. He states he is allergic to seafood. He states when he ate the shrimp he realized that he would probably develop an allergic reaction. He states he then forced himself to vomit. He states that since that time he has felt very itchy. He has no other complaints. Allergies: Coded Allergies: PENICILLINS (Verified Allergy, Unknown, 06/15/18) Uncoded Allergies: SEAFOOD (Allergy, Unknown, 12/15/18) Patient History Past Medical History: see triage record, other - Liver disease Social History: Denies: smoking, alcohol use, drug use Reviewed Nursing Documentation: PMH: Agreed; PSxH: Agreed Nursing Documentation-PMH Hx Gastrointestinal Problems: Yes - PSC ("bad liver") Review of Systems All Other Systems: negative except mentioned in HPI Physical Exam Vital Signs Date Time Temp Pulse Resp B/P (MAP) Pulse Ox O2 Delivery O2 Flow Rate FiO2 12/15/18 20:30 98.1 65 18 124/62 97 Room Air Sp02 EP Interpretation: reviewed, normal General Appearance: no apparent distress, alert, GCS 15, non-toxic Head: normocephalic, atraumatic Eyes: bilateral eye normal inspection, bilateral eye PERRL ENT: hearing grossly normal, normal pharynx, no angioedema, normal voice Neck: full range of motion, supple/symm/no masses Respiratory: chest non-tender, lungs clear, normal breath sounds, no respiratory distress, no retraction, no accessory muscle use, speaking full sentences Cardiovascular #1: regular rate, rhythm, no edema Gastrointestinal: normal bowel sounds, non tender, soft, non-distended, no guarding, no rebound Rectal: deferred Musculoskeletal: back normal, gait/station normal, normal range of motion, non- tender Neurologic: alert, oriented x3, responsive, motor strength/tone normal, sensory intact, speech normal Psychiatric: judgement/insight normal, memory normal, mood/affect normal, no suicidal/homicidal ideation Skin: normal color, no rash, warm/dry, well hydrated Medical Decision Making Diagnostic Impression: Primary Impression: Generalized pruritus ER Course This patient complains of an allergic reaction to shrimp. However, there was no identifiable rash. The patient lungs are clears. I offered the patient oral Benadryl and prednisone. However he declined stating he wanted injections. At this time this is not indicated. I had planned on obtaining a CBC and CMP of this patient to measure the patient's bilirubin given his history of liver disease. I have a low suspicion for an allergic reaction in this patient but he could have pruritus secondary to an elevated bilirubin. However, after discussing this with the patient he became agitated and stating he wanted injectable Benadryl and then eloped from the emergency department yelling at the staff. He was in no distress and appeared stable. Last Vital Signs Date Time Temp Pulse Resp B/P (MAP) Pulse Ox O2 Delivery O2 Flow Rate FiO2 12/15/18 20:53 98.1 65 18 124/62 97 Room Air Disposition: ELOPED Condition: Stable Katina Farley DO Dec 15, 2018 20:58
[2018-12-15 21:14] VITALS: BP 124/62
--- NOTE | 2018-12-15 21:14 | NUR ---
ER Nurse Note: Pt became agitated, yelling that he is not getting the care he needs; Dr. Farley spoke with pt about course of treatment plan after pt refused PO meds. Pt understood; however, pt became angry and walked out of the ED. Charge nurse, LOLA, other hospital staff witnessed and aware.
== END 2018-12-15 21:14 | disposition left against medical advice (07) ==
LOC: EMR 20:40
DX: L29.9 Pruritus, unspecified (principal); Z91.013 Allergy to seafood; Z88.0 Allergy status to penicillin
CPT/HCPCS: 99282